=== PATIENT | female | born 1985 | race Caucasian/White ===

== ENCOUNTER 2018-04-08 19:04 | Emergency (ER) | payer OTHER ==
[~2018-04-08] VITALS: Ht 167.6 cm; Wt 95.3 kg
[2018-04-08 19:42] LABS: ABSOLUTE BASOPHILS 0.1 thou/uL (0.0-0.2); ABSOLUTE EOSINOPHILS 0.1 thou/uL (0.0-0.7); ABSOLUTE LYMPHOCYTES 2.3 thou/uL (0.8-5.3); ABSOLUTE MONOCYTES 0.5 thou/uL (0.0-1.2); ABSOLUTE NEUTROPHILS 7.2 thou/uL (1.6-8.1); EOSINOPHILS 0.6 %; HEMATOCRIT 42.3 % (37.0-47.0); HEMOGLOBIN 14.1 gm/dL (12.0-15.0); MCH 30.5 pg (26.0-34.0); MCHC 33.4 g/dL (28.0-37.0); MCV 91.3 fL (80.0-100.0); MONOCYTES 4.6 %; MPV 8.4 fl. (7.2-11.1); NUCLEATED RBCS 0 /100WBC; PLATELET COUNT* 207 thou/uL (150-400); POLYS 70.8 %; RBC 4.63 mil/uL (4.20-5.00); RDW-CV 14.8 % (10.5-14.5); WBC 10.2 thou/uL (4.0-11.0)
[2018-04-08 19:50] LABS: ANION GAP 5 mmol/L (7-16); BUN 12 mg/dL (7-18); CALCIUM 8.7 mg/dL (8.5-10.1); CHLORIDE 106 mmol/L (98-107); CO2 30 mmol/L (21-32); CREATININE 0.9 mg/dL (0.6-1.3); GLUCOSE 111 mg/dL (70-99); SODIUM 141 mmol/L (136-145)
[2018-04-08 20:01] LABS: ALBUMIN 3.6 g/dL (3.4-5.0); ALKALINE PHOSPHATASE 51 U/L (46-116); NT-PRO BRAIN NAT PEPTIDE 132 pg/mL (<300); SGOT 17 U/L (15-37); SGPT 16 U/L (30-65); TOTAL BILIRUBIN 0.2 mg/dL (<0.1-1.0); TOTAL PROTEIN 6.9 g/dL (6.4-8.2); TROPONIN-I LEVEL <0.06 ng/mL (<0.06)
[2018-04-08 20:27] LABS: AMP/METHAMP Negative (Negative); BARBITURATES Negative (Negative); BENZODIAZEPINES Negative (Negative); COCAINE Negative (Negative); METHADONE Negative (Negative); OPIATES Negative (Negative); PCP Negative (Negative); THC Negative (Negative)
[2018-04-08 20:48] VITALS: BP 113/73
[2018-04-09 11:07] LABS: T3 UPTAKE 26 % (24-39)
--- NOTE | 2018-04-09 14:54 | EKG ---
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
== END 2018-04-08 20:49 | disposition home or self-care (01) ==
LOC: M.ERS 19:04
PROVIDERS: Emergency Medicine
DX: R00.2 Palpitations (principal); F17.210 Nicotine dependence, cigarettes, uncomplicated

== ENCOUNTER 2019-05-30 10:11 | Emergency (ER) | payer OTHER ==
[~2019-05-30] VITALS: Ht 167.6 cm; Wt 93.4 kg
[2019-05-30 11:18] LABS: URINE BILIRUBIN NEGATIVE (Negative); URINE BLOOD TRACE (Negative); URINE CLARITY CLEAR; URINE COLOR YELLOW; URINE GLUCOSE-RANDOM NEGATIVE (Negative); URINE KETONES NEGATIVE (Negative); URINE LEUKOCYTES-REFLEX NEGATIVE (Negative); URINE NITRITE-REFLEX NEGATIVE (Negative); URINE PROTEIN NEGATIVE (Negative); URINE SPECIFIC GRAVITY 1.015 (1.005-1.030); URINE UROBILINOGEN 0.2 E.U./dl (0.2-1.0)
[2019-05-30 11:21] LABS: ABSOLUTE BASOPHILS 0.1 thou/uL (0.0-0.2); ABSOLUTE LYMPHOCYTES 1.5 thou/uL (0.8-5.3); ABSOLUTE MONOCYTES 0.3 thou/uL (0.0-1.2); ABSOLUTE NEUTROPHILS 6.3 thou/uL (1.6-8.1); BASOPHILS 1.1 %; EOSINOPHILS 0.3 %; HEMATOCRIT 45.8 % (37.0-47.0); HEMOGLOBIN 15.4 gm/dL (12.0-15.0); LYMPHOCYTES 18.2 %; MCHC 33.7 g/dL (28.0-37.0); MCV 91.9 fL (80.0-100.0); MONOCYTES 3.8 %; MPV 8.4 fl. (7.2-11.1); NUCLEATED RBCS 0 /100WBC; PLATELET COUNT* 228 thou/uL (150-400); POLYS 76.6 %; RBC 4.98 mil/uL (4.20-5.00); WBC 8.2 thou/uL (4.0-11.0)
[2019-05-30 11:35] LABS: POTASSIUM 3.8 mmol/L (3.5-5.1)
[2019-05-30 11:40] LABS: ALBUMIN 3.7 g/dL (3.4-5.0); TOTAL BILIRUBIN 0.2 mg/dL (<0.1-1.0); TOTAL PROTEIN 7.1 g/dL (6.4-8.2)
[2019-05-30 11:55] VITALS: BP 109/63
--- NOTE | 2019-05-31 12:09 | EKG ---
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 05/31/19 1209 1021 1021 Edgar Garcia MD, FACC /EPI
== END 2019-05-30 11:56 | disposition home or self-care (01) ==
LOC: M.ERS 10:11
PROVIDERS: Personal Emergency Response Attendant
DX: R00.2 Palpitations (principal); F17.210 Nicotine dependence, cigarettes, uncomplicated; Z91.040 Latex allergy status